=== PATIENT | female | born 1975 | race Caucasian/White ===

== ENCOUNTER → 2016-12-27 | Outpatient (CLI) | payer OTHER | LOC: RAD 01:14 | DX: Z12.31 Encounter for screening mammogram for malignant neoplasm of breast (principal) ==

== ENCOUNTER → 2018-01-31 | Outpatient (CLI) | payer OTHER | LOC: RAD 12-30 01:05 | DX: Z12.31 Encounter for screening mammogram for malignant neoplasm of breast (principal) ==

== ENCOUNTER → 2019-02-18 | Outpatient (CLI) | payer OTHER | LOC: RAD 02:19 | DX: Z12.31 Encounter for screening mammogram for malignant neoplasm of breast (principal) ==

== ENCOUNTER → 2020-02-16 | Outpatient (CLI) | payer BC | LOC: BC 08:18 | DX: Z12.31 Encounter for screening mammogram for malignant neoplasm of breast (principal) ==

== ENCOUNTER → 2020-02-24 | Outpatient (CLI) | payer BC | LOC: BC 12:27 | DX: N63.20 Unspecified lump in the left breast, unspecified quadrant (principal); N60.02 Solitary cyst of left breast ==

== ENCOUNTER → 2020-03-08 | Outpatient (CLI) | payer BC ==
--- NOTE | 2020-03-10 14:08 | PATH ---
[facility] [address] [place] [address] PATHOLOGY RPT PROCEDURE Name: JOSIAH SMITH Hector Room #: REG CL M.R.#: [id number] Admission: 03/08/20 Date of : 73 Discharge: Report #: [id number] Path Case #: [id number] [facility] Accession Number: [id number] . 01 Material submitted: . breast - LEFT UPPER OUTER BREAST NODULE. Modifiers: left, upper, outer . 01 Clinical history: . Left breast nodule . 02 Diagnosis: Breast "left upper outer", stereotactic needle biopsy: - Fibrocystic changes, including dense fibrosis, apocrine metaplasia, sclerosing adenosis, duct ectasia, and cyst formation. - Negative for atypia and malignancy. - Microcalcifications. - Please see comment. (MARILU:caron; 03/09/2020) QTP 03/10/2020 1328 Local . 02 Comment: The case is seen in co-review with Dr. Kiera Negron who concurs with the above diagnosis. (MLK:pit; 03/09/2020) . 02 Electronically signed: . Star Severino MD, Pathologist NPI- [id number] . 01 Gross description: . The specimen is received in formalin, labeled "Josiah Smith, left". The specimen is additionally labeled on the requisition as, "left upper outer". Received are multiple needle cores of fibrofatty tissue measuring 4.2 x 3.8 x 0.7 cm in aggregate dimensions. The specimen is submitted entirely in cassettes A1 through A4. The cold ischemic time is 2 minutes. The total formalin fixation time is 11 hours and 28 minutes. ([facility]; 03/08/2020) QAC/QAC 03/09/2020 1611 Local . 02 Pathologist provided ICD-10: N60.12, N60.32, N60.82, N60.22, N60.42 . 02 CPT . 527244 Specimen Comment: A courtesy copy of this report has been sent to [phone], [phone] Specimen Comment: [phone] [place] [address] PATHOLOGY RPT PROCEDURE Name: ERIKA,JOSIAH Young Room #: REG HERNANDEZ Dowd#: [id number] Admission: 03/08/20 Date of : 73 Discharge: Report #: [id number] Path Case #: [id number] Specimen Comment: Report sent to / DR SY Performed at: 01 [facility] [address] [id number] MD Roberto Radford MD Phone: [phone] Performed at: 02 [facility] [address] [id number] MD Michi Delgadillo MD Phone: [phone]
== END | disposition home or self-care (01) ==
LOC: RADSTEREO 11:01 → BC 20:42
PROVIDERS: ATTEND Obstetrics & Gynecology
DX: N60.12 Diffuse cystic mastopathy of left breast (principal); N60.82 Other benign mammary dysplasias of left breast; N60.22 Fibroadenosis of left breast; N60.42 Mammary duct ectasia of left breast; R92.1 Mammographic calcification found on diagnostic imaging of breast; Z98.890 Other specified postprocedural states; Z79.899 Other long term (current) drug therapy

== ENCOUNTER → 2020-09-13 | Outpatient (CLI) | payer BC | LOC: BC 09:57 | PROVIDERS: ATTEND Obstetrics & Gynecology | DX: N64.89 Other specified disorders of breast (principal); Z98.890 Other specified postprocedural states ==

== ENCOUNTER → 2021-04-11 | Outpatient (CLI) | payer BC | LOC: BC 08:19 | PROVIDERS: ATTEND Obstetrics & Gynecology | DX: Z12.31 Encounter for screening mammogram for malignant neoplasm of breast (principal) ==

== ENCOUNTER → 2021-09-21 | Outpatient (CLI) | payer BC | LOC: SJCVCIMAG 09:01 | PROVIDERS: ATTEND Internal Medicine | DX: R00.2 Palpitations (principal); I47.1 Supraventricular tachycardia ==